=== PATIENT | male | born 1965 | race Caucasian/White ===

== ENCOUNTER 2022-06-22 15:17 | Inpatient (IN) | payer OTHER ==
[~2022-06-22] VITALS: Ht 177.8 cm; Wt 120.7 kg
[~2022-06-22 15:17] MED LIST: SOD FERRIC GLUC 125 MG in IV NS 0.9% 100 ML IV SCH
--- NOTE | 2022-06-22 15:20 | NUR ---
CODE STROKE CALLED
--- NOTE | 2022-06-22 15:20 | NUR ---
BIB RA 102 FROM [facility] AFTER MD NOTED APHASIA AND SLURRED SPEECH LAST KNOWN WELL TIME WAS 1250, BLOOD [id number]. PT ATTACHED TO MONITOR. BLOOD GLUCOSE 115 UPON ARRIVAL. PT HAS NOTED SLURRED SPEECH. DR SPENCE AT BEDSIDE. IV ESTABLIHSED R AC 20G. LABS DRAWNA ND COLLECTED AT BEDSIDE. BREAD SLICER MACHINE AT BEDSIDE
--- NOTE | 2022-06-22 15:20 | NUR ---
PT TAKE TO CT VIA GURNEY WITH ACLS PROTOCOLS IN PLACE
[2022-06-22] MEDS ORDERED: CT SWABBABLE VALVE TRANS SET 1 EA INFUS.SET MC ONE (15:28)
[2022-06-22] MEDS ORDERED: IV NS 0.9% 250 ML IV ONE (15:28)
[2022-06-22] MEDS ORDERED: IOHEXOL-350 100 ML VIAL IV ONE (15:28)
[2022-06-22 15:32] LABS: BASOPHILS # (AUTO) 0.1 K/uL (0.0-0.2); BASOPHILS % (AUTO) 1.1 % (0.0-2.0); EOSINOPHILS % (AUTO) 2.8 % (0.0-6.0); HEMATOCRIT 26 % (39-51); HEMOGLOBIN 7.4 g/dL (13.5-17.5); LYMPHOCYTES # (AUTO) 1.1 K/uL (0.8-4.8); LYMPHOCYTES % (AUTO) 14.3 % (20.0-44.0); MEAN CORPUSCULAR HGB CONC 29 g/dl (31.0-36.0); MEAN CORPUSCULAR VOLUME 66 fL (80-96); MONOCYTES # (AUTO) 0.9 K/uL (0.1-1.30); MONOCYTES % (AUTO) 12.3 % (2.0-12.0); NEUTROPHILS # (AUTO) 5.3 K/uL (1.8-8.9); NEUTROPHILS % (AUTO) 69.5 % (43.0-81.0); PLATELET COUNT (AUTO) 504 K/uL (150-450); RED BLOOD CELL COUNT(AUTO) 3.91 MIL/uL (4.5-6.0); WHITE BLOOD COUNT (AUTO) 7.6 K/uL (4.3-11.0)
--- NOTE | 2022-06-22 15:38 | NUR ---
PT RETURNED FROM CT VIA [facility]
[2022-06-22 15:40] LABS: CALCIUM, SERUM 8.9 mg/dL (8.5-10.1); CARBON DIOXIDE 25 mmol/L (21-32); CHLORIDE 107 mmol/L (98-107); CREATININE 1.9 mg/dL (0.6-1.3); GLUCOSE 115 mg/dL (74-106); POTASSIUM 4.4 mmol/L (3.5-5.1); SODIUM SERUM 140 mmol/L (136-145); UREA NITROGEN, BLOOD 26 mg/dL (7-18)
--- NOTE | 2022-06-22 15:42 | NUR ---
SWALLOW ASSESSMENT DONE, PT PASSED.
[2022-06-22] MEDS ORDERED: IV NS 0.9% 1,000 ML IV ONE (16:00)
--- NOTE | 2022-06-22 16:02 | NUR ---
COVID TEST COLLECTED AND SENT
--- NOTE | 2022-06-22 16:10 | NUR ---
PT STATED THAT HE HAS HAD 4 STROKES IN THE PAST AND HAVING SLURRED SPEECH IS NORMAL. HE STATED THAT AT THE CLINIC HE WAS UNABLE TO GET WORDS OUT WHICH IS ABNORMAL FOR HIM.
--- NOTE | 2022-06-22 16:10 | NUR ---
Brendan alejandrekiet in EDM - 06/22/22 at 1633 by ABILIO PT STATED THAT HE HAS HAD 4 STROKES IN THE PASSED AND HAVING SLURRED SPEECH IS NORMAL. HE STATED THAT AT THE CLINIC HE WAS UNABLE TO GET WORDS OUT WHICH IS ABNORMAL FOR HIM.
[2022-06-22] MEDS ORDERED: PANT40TA49 PO (18:12)
[2022-06-22] MEDS ORDERED: METO50TA16 PO (18:12)
[2022-06-22] MEDS ORDERED: LOSA50TA39 PO (18:12)
[2022-06-22] MEDS ORDERED: NIFE30TA91 PO (18:12)
[2022-06-22] MEDS ORDERED: HYDR100T27 PO (18:12)
[2022-06-22] MEDS ORDERED: CLOP75TA15 PO (18:12)
[2022-06-22] MEDS ORDERED: FURO20TA4 PO (18:12)
[2022-06-22] MEDS ORDERED: ATOR40TA PO (18:12)
[2022-06-22] MEDS ORDERED: ASPI-1169 PO (18:12)
--- NOTE | 2022-06-22 18:29 | NUR ---
REPORT GIVEN TO MARK FOR SONAM
[2022-06-22 19:20] LABS: IRON, SERUM 9 ug/dl (50-175); TOTAL IRON BINDING CAPACITY 423 ug/dl (250-450)
--- NOTE | 2022-06-22 19:51 | NUR ---
KHANH OF KIDNEY DONE AT BEDSIDE
[2022-06-22 20:10] VITALS: BP 128/76
--- NOTE | 2022-06-22 20:10 | NUR ---
RN NOTES; RECEIVED PT FROM ER WITH ALEXIS CONNECTED TO ACLS PROTOCOL,ACCOMPANY BY , AWAKED AOX4 ABLE TO MAKE NEEDS KNOWN,ON 2L O2 VIA NC SHMUEL WELL SAT 98%,NO SOB/DISTRESS NOTED,NO COMPLAINED OF PAIN/DISCOMFORT AT THIS TIME,IV ACCESS RAC 20G INTACT AND PATENT,PT WAS ORIENT THE RM AND VERBALLY ORIENTED,SAFETY MEASURE IN PLACE,CALL LIGHT WITHIN REACH,WILL CONTINUE TO MONITOR.
--- NOTE | 2022-06-22 20:15 | NUR ---
PT TRANSFERRING TO 3W VIA ACLS PROTOCOL. VSS. ALL BELONGINGS WITH PT
--- NOTE | 2022-06-22 20:15 | NUR ---
TRANSFERRED TO ROOM VIA ACLS PROTOCOL
[2022-06-22] MEDS: ATORVASTATIN 40 MG TABLET PO SCH (21:25)
[2022-06-22 23:21] VITALS: BP 129/70
[2022-06-22 23:40] VITALS: BP 135/73
[2022-06-22 23:57] VITALS: BP 133/69
[2022-06-23] VITALS (8 sets, daily range): BP systolic 140–181; BP diastolic 71–103
--- NOTE | 2022-06-23 01:34 | NUR ---
RN NOTES; S/P BLOOD TRANSFUSION 1PRBC,PT SHMUEL WELL,NO SIGN ADVERSE REACTION NOTED,V/S WITHIN NORMAL LIMITS AND RECORDED.CONTINUE TO MONITOR.
[2022-06-23 05:47] LABS: BASOPHILS # (AUTO) 0.1 K/uL (0.0-0.2); BASOPHILS % (AUTO) 1.1 % (0.0-2.0); EOSINOPHILS % (AUTO) 3.8 % (0.0-6.0); HEMATOCRIT 26 % (39-51); HEMOGLOBIN 7.9 g/dL (13.5-17.5); LYMPHOCYTES # (AUTO) 1.5 K/uL (0.8-4.8); LYMPHOCYTES % (AUTO) 23.7 % (20.0-44.0); MEAN CORPUSCULAR HGB CONC 30 g/dl (31.0-36.0); MEAN CORPUSCULAR VOLUME 65 fL (80-96); MONOCYTES # (AUTO) 0.9 K/uL (0.1-1.30); MONOCYTES % (AUTO) 14.6 % (2.0-12.0); NEUTROPHILS # (AUTO) 3.6 K/uL (1.8-8.9); NEUTROPHILS % (AUTO) 56.8 % (43.0-81.0); PLATELET COUNT (AUTO) 411 K/uL (150-450); RED BLOOD CELL COUNT(AUTO) 3.96 MIL/uL (4.5-6.0); WHITE BLOOD COUNT (AUTO) 6.3 K/uL (4.3-11.0)
[2022-06-23 06:08] LABS: CALCIUM, SERUM 8.6 mg/dL (8.5-10.1); CREATININE 1.6 mg/dL (0.6-1.3); POTASSIUM 3.8 mmol/L (3.5-5.1)
--- NOTE | 2022-06-23 06:13 | NUR ---
RN CLOSING NOTES; PATIENT IN BED AWAKED AOX4 ABLE TO MAKE NEEDS KNOWN,ON 2L O2 VIA NC SHMUEL WELL SAT 99%,NO SOB/DISTRESS NOTED,NO COMPLAINED OF PAIN/DISCOMFORT DURING SHIFT,DUE MEDS GIVEN ORDER,ALL NEEDS ATTENDED,IV ACCESS RAC 20G INTACT AND PATENT,SAFETY MEASURE IN PLACE,CALL LIGHT WITHIN REACH,WILL ENDORSED TO NEXT SHIFT.
--- NOTE | 2022-06-23 07:23 | NUR ---
DELIVERY MAN OPENING NOTES RECEIVED PT AWAKE IN BED IN NO ACUTE SIGNS OF DISTRESS. A/O X4. ABLE TO MAKE NEEDS KNOWN, DENIES PAIN OR ANY DISCOMFORTS AT THIS TIME. ON O2 VIA N/C @ 2LPM, TOLERATING WELL, BREATHING EVEN AND UNLABORED.ON TELE-MONITOR WITH READING OF NSR, HR 67 BPM AT THIS TIME, NO C/O CARDIAC DISTRESS VOICED. IV ACCESS RAC #20G INTACT, PATENT AND FLUSHES WELL. NURSING SWALLOW SCREEN DONE, PT SWALLOWING WELL W/O PROBLEM. NIHSS ASSESSMENT DONE, NO DROOPING OF FACE, NO DIFFICULTY SPEAKING, NO DRIFT ON FOUR EXTREMITIES DURING ASSESSMENT. SAFETY MEASURES IN PLACE: BED IN LOWEST LOCKED POSITION, HOB ELEVATED, SIDE RAILS UP X2, CALL LIGHT AND TRAY TABLE WITHIN REACH OF PT. WILL CONTINUE TO MONITOR PT ACCORDINGLY.
[2022-06-23] MEDS: CLOPIDOGREL BISULFATE 75 MG TABLET PO SCH (08:29)
[2022-06-23] MEDS: PANTOPRAZOLE 40 MG TABLET.DR PO SCH ×2 (08:29→17:33)
[2022-06-23] MEDS: ASPIRIN 81 MG TAB.CHEW PO SCH (08:30)
--- NOTE | 2022-06-23 12:49 | NUR ---
RN NOTES RESULTS OF EGD AND COLONOSCOPY FROM [facility] PROVIDED BY PT'S AND PLACED ON PT'S CHART.
[2022-06-23] MEDS: SOD FERRIC GLUC 125 MG in IV NS 0.9% 100 ML IV SCH (14:35)
--- NOTE | 2022-06-23 15:28 | NUR ---
SS Consult: SS consult requested for TIA. The pt. is a 57-year-old female who was admitted to [facility] due to TIA. SW met with pt. bedside. The pt. was alert & oriented x 4 and makes good eye contact. The pt. appears well-groomed. Pt. denies SI/HI and denies hallucinations. The pt. has euthymic mood & affect. Pt. stated that he lives at home [[id number] [facility] [address]] with his , Debbie Andrade [phone] and would like to return there once ready for DC. Pt. states that they 911 after he began having worsening symptoms of aphasia, dysarthria, and right-sided weakness. Per pt., he has had strokes in the past which resulted in aphasia, dysarthria, and right-sided weakness. However, according to the report from the paramedics, his and his PCP noted that it is worse than his normal per EMR. SW conducted post stroke depression scale and pt. scored a 5, and SW notified pt.s nurseConor of psych consult is needed. SW also provided empowerment after stroke educational material and pt. accepted it. Pt. denies drug or alcohol use. Pt. denies any Hx. of mental illness or medication. Pt. stated that her support system includes his and family. DC Plan: Pt. stated she would like to return to home [[id number] [facility] [address]] with his , Debbie Andrade [phone]. SW provided stroke empowerment resources. Pt. accepted them. Pt. scored a 5 on the post stroke depression scale SW notified patients Conor rock for psych consult.
--- NOTE | 2022-06-23 18:15 | NUR ---
RN NOTES COLLECTED URINE SPECIMEN AND CALLED LAB TO IT PICK-UP.
--- NOTE | 2022-06-23 18:20 | NUR ---
RN NOTES SINCERE OTOOLE STATED THAT PT HAS A SCORE OF 5 POST STROKE DEPRESSION SCALE AND NEEDS PSYCH CONSULT. REPORTED AND LEFT MESSAGE TO DR BERMAN.
--- NOTE | 2022-06-23 18:44 | NUR ---
DESIGN QUALITY ENGINEER CLOSING NOTES PT IN BED ASLEEP AT THIS TIME, AROUSES EASILY. HOB ELEVATED. FRIENDS AT BEDSIDE. A/O X4. ABLE TO MAKE NEEDS KNOWN. ON O2 VIA N/C @ 2LPM, TOLERATING WELL, BREATHING EVEN AND UNLABORED. ON TELE-MONITOR WITH CURRENT READING OF NSR, HR 89 BPM, NO C/O CARDIAC DISTRESS VOICED DURING SHIFT. IV ACCESS RAC #20G SL, INTACT, PATENT AND FLUSHES WELL. ALL NEEDS AND CARE ATTENDED WELL. SAFETY MEASURES KEPT IN PLACE: BED IN LOWEST LOCKED POSITION, HOB ELEVATED AT ALL TIMES, SIDE-RAILS UP X2, CALL LIGHT AND TRAY TABLE WITHIN REACH OF PT. WILL ENDORSE SONAM TO TUBE FITTER NURSE.
--- NOTE | 2022-06-23 19:30 | NUR ---
NUMERICAL CONTROL NESTING OPERATOR OPENING NOTES PT IN BED ASLEEP AT THIS TIME, AROUSES EASILY. HOB ELEVATED. FRIENDS AT BEDSIDE. A/O X4. ABLE TO MAKE NEEDS KNOWN. ON O2 VIA N/C @ 2LPM, TOLERATING WELL, BREATHING EVEN AND UNLABORED. ON TELE-MONITOR WITH CURRENT READING OF NSR, HR 89 BPM. IV ACCESS RAC #20G SL, INTACT, PATENT AND FLUSHES WELL. SAFETY MEASURES KEPT IN PLACE: BED IN LOWEST LOCKED POSITION, HOB ELEVATED AT ALL TIMES, SIDE-RAILS UP X2, CALL LIGHT AND TRAY TABLE WITHIN REACH OF PT.
[2022-06-23 19:37] LABS: BILIRUBIN,URINE NEGATIVE (NEGATIVE); LEUKOCYTE ESTERASE ,URINE NEGATIVE (NEGATIVE); NITRITE, URINE NEGATIVE (NEGATIVE); PROTEIN,URINE NEGATIVE (NEGATIVE); UGLUCOSE NEGATIVE (NEGATIVE); UROBILINOGEN,URINE 0.2 EU/dL (0.2)
[2022-06-23 19:42] LABS: COLOR,URINE YELLOW (YELLOW)
[2022-06-23 19:48] LABS: CREATININE, URINE 142.6 MG/DL (30.0-125.0)
[2022-06-23] MEDS: ACETAMINOPHEN 325 MG TABLET PO PRN (21:09)
[2022-06-23] MEDS: ATORVASTATIN 40 MG TABLET PO SCH (21:09)
[2022-06-24] VITALS: BP 164/90
[2022-06-24 04:00] VITALS: BP 150/95
[2022-06-24 06:12] LABS: BASOPHILS # (AUTO) 0.1 K/uL (0.0-0.2); EOSINOPHILS % (AUTO) 4.4 % (0.0-6.0); HEMATOCRIT 25 % (39-51); HEMOGLOBIN 7.8 g/dL (13.5-17.5); LYMPHOCYTES # (AUTO) 1.3 K/uL (0.8-4.8); MEAN CORPUSCULAR HGB CONC 31 g/dl (31.0-36.0); MEAN CORPUSCULAR VOLUME 66 fL (80-96); MONOCYTES % (AUTO) 15.4 % (2.0-12.0); NEUTROPHILS # (AUTO) 3.9 K/uL (1.8-8.9); NEUTROPHILS % (AUTO) 59.2 % (43.0-81.0); PLATELET COUNT (AUTO) 422 K/uL (150-450); RED BLOOD CELL COUNT(AUTO) 3.83 MIL/uL (4.5-6.0); WHITE BLOOD COUNT (AUTO) 6.6 K/uL (4.3-11.0)
[2022-06-24 06:27] LABS: ALBUMIN 3.1 g/dL (3.4-5.0); BILIRUBIN,DIRECT 0.2 mg/dL (0.0-0.2); BILIRUBIN,TOTAL 0.3 mg/dL (0.2-1.0); CALCIUM, SERUM 8.7 mg/dL (8.5-10.1); CREATININE 1.5 mg/dL (0.6-1.3); POTASSIUM 3.8 mmol/L (3.5-5.1); TOTAL PROTEIN, SERUM 6.2 g/dL (6.4-8.2)
[2022-06-24 07:00] VITALS: BP 168/83
--- NOTE | 2022-06-24 07:30 | NUR ---
SLABBER NOTES PT AWAKE, ALERT AND ORIENTED, SITTING IN BED, EATING BREAKFAST, NO COMPLAINT OF PAIN OR ANY DISCOMFORT, RESPIRATIONS NORMAL, CALL LIGHT WITHIN REACH, NEEDS ATTENDED.
[2022-06-24] MEDS: PANTOPRAZOLE 40 MG TABLET.DR PO SCH ×2 (08:08→16:09)
[2022-06-24] MEDS: ASPIRIN 81 MG TAB.CHEW PO SCH (08:08)
[2022-06-24] MEDS: CLOPIDOGREL BISULFATE 75 MG TABLET PO SCH (08:08)
[2022-06-24 12:00] VITALS: BP 151/101
[2022-06-24] MEDS: hydrALAZINE HCL 25 MG TABLET PO SCH ×2 (12:29→16:08)
[2022-06-24] MEDS: SOD FERRIC GLUC 125 MG in IV NS 0.9% 100 ML IV SCH (13:54)
[2022-06-24 16:00] VITALS: BP 146/82
[2022-06-24 16:34] LABS: OCCULT BLOOD STOOL POSITIVE (NEGATIVE)
--- NOTE | 2022-06-24 18:04 | NUR ---
DAY CARE AIDE NOTES PT IN BED, AWAKE, ALERT AND ORIENTED, NO COMPLAINT OF PAIN OR ANY DISCOMFORT, VISITORS AT BEDSIDE, ATE DINNER, DUE MEDS GIVEN ORDERED, ASSISTED TO BATHROOM ORDERED, SEEN BY DR. BERMAN AND DR. DELGADO TODAY, ORDERS GIVEN, NEEDS ATTENDED.
[2022-06-24 20:00] VITALS: BP 161/86
--- NOTE | 2022-06-24 20:04 | NUR ---
DIRECTOR OF STRATEGIC PARTNERSHIPS OPENING NOTE PATIENT AWAKE IN BED WITH FRIENDS AT BEDSIDE, PT ALERT/ORIENTED X 4, PT ABLE TO MAKE NEEDS KNOWN, PT NOTED WITH DYSARTHRIA AT BASELINE. PATIENT STABLE ON 2 LPM OF O2 VIA NASAL CANNULA, NO S/S OF DISTRESS OR SOB NOTED, BREATHING EVEN AND UNLABORED. PATIENT ON EXTERNAL DAIRY CATTLE FARM WORKER READING SINS RHYTHM, HR: 78. IV ACCESS ON LAC #20G INTACT AND SALINE LOCKED. PATIENT C/O OF 5/10 BACK PAIN, NO ORDER FOR PAIN MEDS AT THIS TIME, PT ALSO C/O OF INSOMNIA AND REQUESTING SLEEPING MEDICINE, STATES HE TAKES MELATONIN AT HOME, WILL CONTACT DRUG ABUSE RESISTANCE EDUCATION OFFICER MD FOR ORDERS. SAFETY MEASURES IN PLACE: CALL LIGHT WITHIN REACH, SIDE RAILS UP X 2, BED LOCKED IN LOWEST POSITION, HOB ELEVATED, BED ALARM ON. WILL CONTINUE TO MONITOR PATIENT
--- NOTE | 2022-06-24 20:24 | NUR ---
STAINING MACHINE OPERATOR NOTE CONTACTED SHOWER ENCLOSURE INSTALLER DR. SANDOVAL, NEW ORDER FOR PRN RESTORIL 7.5 MG HS AND PRN MOTRIN 600 MG Q6H, ORDER VERIFIED AND CARRIED OUT
[2022-06-24] MEDS ORDERED: TEMAZEPAM 7.5 MG CAPSULE PO PRN (20:30)
[2022-06-24] MEDS ORDERED: IBUPROFEN 600 MG TABLET PO PRN (20:30)
[2022-06-24] MEDS: ATORVASTATIN 40 MG TABLET PO SCH (21:28)
[2022-06-24] MEDS: ACETAMINOPHEN 325 MG TABLET PO PRN (21:28)
[2022-06-25] VITALS (8 sets, daily range): BP systolic 132–169; BP diastolic 71–100
[2022-06-25 06:15] LABS: BASOPHILS % (AUTO) 0.5 % (0.0-2.0); EOSINOPHILS % (AUTO) 4.7 % (0.0-6.0); HEMATOCRIT 25 % (39-51); HEMOGLOBIN 7.5 g/dL (13.5-17.5); LYMPHOCYTES # (AUTO) 1.5 K/uL (0.8-4.8); LYMPHOCYTES % (AUTO) 20.3 % (20.0-44.0); MEAN CORPUSCULAR HGB CONC 30 g/dl (31.0-36.0); MEAN CORPUSCULAR VOLUME 65 fL (80-96); MONOCYTES # (AUTO) 1.1 K/uL (0.1-1.30); MONOCYTES % (AUTO) 15.3 % (2.0-12.0); NEUTROPHILS # (AUTO) 4.3 K/uL (1.8-8.9); NEUTROPHILS % (AUTO) 59.2 % (43.0-81.0); PLATELET COUNT (AUTO) 395 K/uL (150-450); RED BLOOD CELL COUNT(AUTO) 3.81 MIL/uL (4.5-6.0); WHITE BLOOD COUNT (AUTO) 7.3 K/uL (4.3-11.0)
[2022-06-25 06:30] LABS: CALCIUM, SERUM 8.8 mg/dL (8.5-10.1); CREATININE 1.4 mg/dL (0.6-1.3); POTASSIUM 3.8 mmol/L (3.5-5.1)
--- NOTE | 2022-06-25 06:53 | NUR ---
CONTRACT PREPARER CLOSING NOTE PATIENT SLEEPING IN BED, PT ALERT/ORIENTED X 4, PT ABLE TO MAKE NEEDS KNOWN, PT NOTED WITH MILD DYSARTHRIA AT BASELINE. PATIENT STABLE ON 2 LPM OF O2 VIA NASAL CANNULA, NO S/S OF DISTRESS OR SOB NOTED, BREATHING EVEN AND UNLABORED. PATIENT ON EXTERNAL KEY WORKER READING SINS RHYTHM, HR: 67. IV ACCESS ON RAC #20G INTACT AND SALINE LOCKED. MEDICATIONS GIVEN ORDERED, PT NEEDS MET THROUGHOUT SHIFT. SAFETY MEASURES IN PLACE: CALL LIGHT WITHIN REACH, SIDE RAILS UP X 2, BED LOCKED IN LOWEST POSITION, HOB ELEVATED, BED ALARM ON. WILL ENDORSE TO DAYSHIFT RN FOR CONTINUITY OF CARE
--- NOTE | 2022-06-25 07:00 | NUR ---
MECHATRONICS TECHNICIAN OPENING NOTES: RECEIVED PATIENT IN BED AWAKE, ALERT AND ORIENTED X 4 AND ABLE TO VERBALIZED NEEDS. NOTED WITH DYSARTHRIA (PRESENT ALREADY UPON ADMISSION PER ADMISSION) ON O2 INHALATION @2LPM VIA NASAL CANNULA. NOTED WITH SOB ESPECIALLY UPON EXERTION. ON NUTRITION ASSOCIATE WITH CURRENT READING : SINUS RHYTHM PULSE @67BPM. IV ACCESS ON RAC GAUGE 20 PATENT, INTACT AND SALINE LOCKED. SAFETY MEASURES MAINTAINED: BED LOCKED AND IN LOWEST POSITION, SIDE RAILS UP X 2. CALL LIGHT IN EASY REACH FOR HELP AND ASSISTANCE. WILL MONITOR PATEIENT ACCORDINGLY.
[2022-06-25] MEDS: CLOPIDOGREL BISULFATE 75 MG TABLET PO SCH (08:18)
[2022-06-25] MEDS: PANTOPRAZOLE 40 MG TABLET.DR PO SCH ×2 (08:18→16:19)
[2022-06-25] MEDS: ASPIRIN 81 MG TAB.CHEW PO SCH (08:18)
[2022-06-25] MEDS: hydrALAZINE HCL 25 MG TABLET PO SCH ×3 (08:19→16:20)
[2022-06-25] MEDS: VENLAFAXINE XR 37.5 MG CAP.SR.24H PO SCH (11:20)
[2022-06-25 12:06] LABS: IMMUNOGLOBULIN A, SERUM 273 mg/dL (90-386); IMMUNOGLOBULIN G, SERUM 872 mg/dL (603-1613); IMMUNOGLOBULIN M, SERUM 64 mg/dL (20-172)
[2022-06-25] MEDS: SOD FERRIC GLUC 125 MG in IV NS 0.9% 100 ML IV SCH (14:22)
--- NOTE | 2022-06-25 18:46 | NUR ---
TRANSFORMER MECHANIC CLOSING NOTES: PT IN BED AWAKE. ALERT AND ORIENTED X 4 AT BED SIDE, NO SOB OR CARDIAC DISTRESS NOTED. ON O2 INHALATION @2LPM VIA NC. ON PRINCIPAL GIFTS OFFICER WITH CURRENT READING OF:SINUS RHYTHM @ 83BPM. IV ACCESS ON RAC GAUGE 20, PATENT INTACT AND SALINE LOCKED. SAFETY MEASURES MAINTAINED: BED LOCKED AND IN LOWEST POSITION, SIDE RAILS UP X 2. CALL LIGHT IN EASY REACH FOR HELP. WILL MONITOR PT ACCORDINGLY. ENDORSED TO OCCUPATIONAL THERAPY DIRECTOR RN FOR CONTINUITY OF CARE.
--- NOTE | 2022-06-25 19:35 | NUR ---
POLITICAL CONSULTANT OPENING NOTES RECEIVED PT IN BED AWAKE. ALERT AND ORIENTED. A/O X 4. AT BED SIDE, NO SOB OR CARDIAC DISTRESS NOTED. ON O2 INHALATION @2LPM VIA NC, BREATHING EVEN AND UNLABORED, NO SOB OR DISTRESS NOTED AT THIS TIME. ON FOLDER SEAMER AUTOMATIC WITH CURRENT READING OFSINUS RHYTHM @ 82. IV ACCESS ON RAC #20G, PATENT INTACT AND SALINE LOCKED. SAFETY MEASURES MAINTAINED WITH BED IN LOCK AND IN LOWEST POSITION. SIDE RAILS UP X 2. CALL LIGHT AND TRAY WITHIN EASY REACH. WILL CONTINUE WITH THE PLAN OF CARE.
[2022-06-25] MEDS: ATORVASTATIN 40 MG TABLET PO SCH (22:22)
[2022-06-26] VITALS: BP 147/79
[2022-06-26 04:00] VITALS: BP 156/68
[2022-06-26 06:17] LABS: BASOPHILS # (AUTO) 0.1 K/uL (0.0-0.2); BASOPHILS % (AUTO) 0.7 % (0.0-2.0); EOSINOPHILS % (AUTO) 4.6 % (0.0-6.0); HEMATOCRIT 26 % (39-51); HEMOGLOBIN 7.8 g/dL (13.5-17.5); LYMPHOCYTES # (AUTO) 1.1 K/uL (0.8-4.8); LYMPHOCYTES % (AUTO) 14.5 % (20.0-44.0); MEAN CORPUSCULAR HGB CONC 30 g/dl (31.0-36.0); MEAN CORPUSCULAR VOLUME 66 fL (80-96); MONOCYTES # (AUTO) 1.3 K/uL (0.1-1.30); MONOCYTES % (AUTO) 16.5 % (2.0-12.0); NEUTROPHILS % (AUTO) 63.7 % (43.0-81.0); PLATELET COUNT (AUTO) 378 K/uL (150-450); RED BLOOD CELL COUNT(AUTO) 3.92 MIL/uL (4.5-6.0); WHITE BLOOD COUNT (AUTO) 7.9 K/uL (4.3-11.0)
[2022-06-26 06:43] LABS: CALCIUM, SERUM 8.5 mg/dL (8.5-10.1); CREATININE 1.4 mg/dL (0.6-1.3); POTASSIUM 4.1 mmol/L (3.5-5.1)
--- NOTE | 2022-06-26 07:12 | NUR ---
DIRECTOR OF HOME ECONOMICS OPENING NOTES: RECEIVED PATIENT IN BED ASLEEP, EASILY AROUSED WITH STIMULI, ALERT AND ORIENTED X 4 AND ABLE TO VERBALIZED NEEDS. NOTED WITH DYSARTHRIA (PRESENT ALREADY UPON ADMISSION PER ADMISSION) ON O2 INHALATION @2LPM VIA NASAL CANNULA. NOTED WITH SOB ESPECIALLY UPON EXERTION. ON RD SCIENTIST WITH CURRENT READING : SINUS RHYTHM PULSE @64BPM. IV ACCESS ON RAC GAUGE 20 PATENT, INTACT AND SALINE LOCKED. SAFETY MEASURES MAINTAINED: BED LOCKED AND IN LOWEST POSITION, SIDE RAILS UP X 2. CALL LIGHT IN EASY REACH FOR HELP AND ASSISTANCE. WILL MONITOR PATEIENT ACCORDINGLY.
[2022-06-26 08:00] VITALS: BP 156/96
--- NOTE | 2022-06-26 08:06 | NUR ---
SPA RECEPTIONIST CLOSING NOTES PT IN BED AWAKE. ALERT AND ORIENTED. A/O X 4. NO SOB OR CARDIAC DISTRESS NOTED. ON O2 INHALATION @2LPM VIA NC, BREATHING EVEN AND UNLABORED, NO SOB OR DISTRESS NOTED AT THIS TIME. ON FIELD IDENTIFICATION SPECIALIST WITH CURRENT READING OF SINUS RHYTHM @ 82. IV ACCESS ON RAC #20G, PATENT INTACT AND SALINE LOCKED. SAFETY MEASURES MAINTAINED WITH BED IN LOCK AND IN LOWEST POSITION. SIDE RAILS UP X 2. CALL LIGHT AND TRAY WITHIN EASY REACH. WILL ENDORSE TO THE NEXT SHIFT.
[2022-06-26] MEDS: hydrALAZINE HCL 25 MG TABLET PO SCH ×3 (08:42→16:44)
[2022-06-26] MEDS: ASPIRIN 81 MG TAB.CHEW PO SCH (08:42)
[2022-06-26] MEDS: VENLAFAXINE XR 37.5 MG CAP.SR.24H PO SCH ×3 (08:42→08:53)
[2022-06-26] MEDS: CLOPIDOGREL BISULFATE 75 MG TABLET PO SCH (08:42)
[2022-06-26] MEDS: PANTOPRAZOLE 40 MG TABLET.DR PO SCH ×2 (08:43→16:43)
--- NOTE | 2022-06-26 08:47 | NUR ---
RN NOTES: PT INITIALLY WANTED TO TAKE EFFEXOR, OPENED AND PT CHANGED MIND AND REFUSED. REMOVED MARKETING INFORMATION COORDINATOR AND NITISH TO AERIAL APPLICATOR PILOT SAMANTHA.
[2022-06-26 11:02] LABS: EOSINOPHILS % (MANUAL) 4 % (0-4); LYMPHOCYTES % (MANUAL) 17 % (16-48); MONOCYTES % (MANUAL) 14 % (0-11.0); NEUTROPHILS % (MANUAL) 65 (42-76)
[2022-06-26 12:00] VITALS: BP 160/85
[2022-06-26] MEDS: SOD FERRIC GLUC 125 MG in IV NS 0.9% 100 ML IV SCH (14:05)
[2022-06-26] MEDS ORDERED: FERR325T23 PO (14:46)
[2022-06-26 16:44] VITALS: BP 151/81
--- NOTE | 2022-06-26 16:44 | NUR ---
MS DISCHARGE NOTES: PATIENT DC HOME ACCOMPANIED BY FRIEND. PT ALERT AND ORIENTED X 4 AND ABLE TO MAKE NEEDS KNOWN, NO COMPLAIN OF ANY PAIN AT THIS TIME. DISCHARGE MEDS GIVEN TO PT AND VERBALIZED UNDERSTANDING. MEDS DISCHARGE INSTRUCTIONS GIVEN AND PACKET. ALL BELONGINGS TAKEN WITH THE PT. HELP DESK TECHNICIAN PAOLA BERMAN DROPPED BY AND REPEATED THE DC ORDERS. HOME HEALTH ARRANGED PER CM MARLO AND INFORMED PT.INSTRUCTED TO CHECK BP EVERYDAY AND IT SHOULD BE IN 150S. REMOVEDD IV ACCESS AND PT'S IDENTIFICATION BAND. PT WAS WHEELED BY YESY Wong PT LEFT THE UNIT STABLE.
[2022-06-26] MEDS ORDERED: ONDANSETRON HCL/PF 4 MG/2 ML VIAL ONE (20:55)
[2022-06-27 11:07] LABS: *SPE A/G RATIO 1.1 (0.7-1.7); *SPE ALPHA-1-GLOBULIN 0.4 g/dL (0.0-0.4); *SPE ALPHA-2-GLOBULIN 0.7 g/dL (0.4-1.0); *SPE M-SPIKE Not Observed g/dL (Not Observed)
[2022-07-01] MEDS ORDERED: LEVO500T90 PO (10:21)
== END 2022-06-26 17:15 | disposition home health service (06) | DRG 47 ==
LOC: ER 15:18 → TELE 18:50 → MED 06-26 10:57
PROVIDERS: ADMIT Nurse Practitioner Acute Care; ATTEND Nurse Practitioner Acute Care
PROC: 30233N1 Transfusion of Nonautologous Red Blood Cells into Peripheral Vein, Percutaneous Approach (ICD-10-PCS; principal; 2022-06-22)
DX: G45.9 Transient cerebral ischemic attack, unspecified (principal); N17.0 Acute kidney failure with tubular necrosis; I69.351 Hemiplegia and hemiparesis following cerebral infarction affecting right dominant side; I25.10 Atherosclerotic heart disease of native coronary artery without angina pectoris
CPT/HCPCS: 36415; 70450-TC; 70496-TC; 70498-TC; 70547-TC; 70551-TC; 71045-TC; 71250-TC; 76770-TC; 80048-TC; 80061-TC; 80076-TC; 82272-TC; 82570-TC; 82607-TC; 82728-TC; 82784; 82962-TC; 83540-TC; 84155; 84165; 84300-TC; 84443-TC; 84484-TC; 85025-TC; 85730-TC; 86334; 86850-TC; 87081-TC; 92526; 92611-TC; 93307-TC; 93880-TC; 97112-TC; 97116-TC; 97530-TC; A4223; C9803; G0378; J2405; J2916; J7030; J7040; J7050; P9016; Q9967

== ENCOUNTER 2022-06-26 19:54 | Inpatient (IN) | payer OTHER ==
[~2022-06-26] VITALS: Ht 167.6 cm; Wt 113.4 kg
[~2022-06-26 19:54] MED LIST changes: +ASPI-1169 PO; +ATOR40TA PO; +CLOP75TA15 PO; +FERR325T23 PO; +FURO20TA4 PO; +HYDR100T27 PO; +LOSA50TA39 PO; +METO50TA16 PO; +NIFE30TA91 PO; +PANT40TA49 PO; -SOD FERRIC GLUC 125 MG in IV NS 0.9% 100 ML IV SCH
--- NOTE | 2022-06-26 20:00 | NUR ---
MARYJO 86 FROM HOME FOR FEVER AND CHILLS. PT WAS D/C'D HOME FROM [facility] AT 1830. PLACED IN BED, AAOX3, TACHYPNEIC RR- 28 SATURATING AT 95%RA, WARM TO TOUCH.
[2022-06-26] MEDS ORDERED: ACETAMINOPHEN ES 500 MG TABLET PO ONE ×2 (20:30→21:00)
[2022-06-26] MEDS ORDERED: IV NS 0.9% 1,000 ML BAG IV ONE (20:30)
--- NOTE | 2022-06-26 20:35 | NUR ---
BLOOD DRAWN, SWAB FOR COVID19 SENT TO LAB.
[2022-06-26] MEDS ORDERED: ACETAMINOPHEN ES 500 MG TABLET ONE (20:38)
[2022-06-26 20:46] LABS: BASOPHILS # (AUTO) 0.1 K/uL (0.0-0.2); BASOPHILS % (AUTO) 0.9 % (0.0-2.0); EOSINOPHILS % (AUTO) 0.6 % (0.0-6.0); HEMATOCRIT 29 % (39-51); HEMOGLOBIN 8.7 g/dL (13.5-17.5); LYMPHOCYTES # (AUTO) 0.5 K/uL (0.8-4.8); LYMPHOCYTES % (AUTO) 3.1 % (20.0-44.0); MEAN CORPUSCULAR HGB CONC 30 g/dl (31.0-36.0); MEAN CORPUSCULAR VOLUME 66 fL (80-96); MONOCYTES # (AUTO) 1.4 K/uL (0.1-1.30); MONOCYTES % (AUTO) 9.4 % (2.0-12.0); NEUTROPHILS # (AUTO) 12.9 K/uL (1.8-8.9); PLATELET COUNT (AUTO) 378 K/uL (150-450); RED BLOOD CELL COUNT(AUTO) 4.41 MIL/uL (4.5-6.0)
[2022-06-26] MEDS ORDERED: ONDANSETRON HCL/PF - ER 4 MG/2 ML VIAL IV ONE (21:00)
[2022-06-26 21:09] LABS: ALANINE AMINOTRANSFERASE 21 U/L (12-78); ALBUMIN 3.8 g/dL (3.4-5.0); ALKALINE PHOSPHATASE 67 U/L (46-116); ASPARTATE AMINOTRANSFERASE 19 U/L (15-37); BILIRUBIN,DIRECT 0.2 mg/dL (0.0-0.2); BILIRUBIN,TOTAL 0.5 mg/dL (0.2-1.0); CALCIUM, SERUM 9.1 mg/dL (8.5-10.1); CARBON DIOXIDE 24 mmol/L (21-32); CHLORIDE 103 mmol/L (98-107); CREATININE 1.6 mg/dL (0.6-1.3); GLUCOSE 96 mg/dL (74-106); POTASSIUM 3.2 mmol/L (3.5-5.1); SODIUM SERUM 140 mmol/L (136-145); TOTAL PROTEIN, SERUM 7.1 g/dL (6.4-8.2); UREA NITROGEN, BLOOD 17 mg/dL (7-18)
--- NOTE | 2022-06-26 21:13 | NUR ---
CRITICAL LACTIC ACID 2.1
[2022-06-26] MEDS ORDERED: ACETAMINOPHEN 325 MG TABLET PO PRN (22:00)
[2022-06-26] MEDS ORDERED: MAG HYDROX/AL HYDROX/SIMETH 30 ML UDC PO PRN (22:00)
[2022-06-26] MEDS ORDERED: Z GUARD REMEDY 4 OZ OINT TP PRN (22:00)
[2022-06-26] MEDS ORDERED: MAGNESIUM HYDROXIDE 30 ML UDC PO PRN (22:00)
[2022-06-26 22:17] LABS: BAND % (MANUAL) 2 % (0.0-5.0); LYMPHOCYTES % (MANUAL) 7 % (16-48); MONOCYTES % (MANUAL) 4 % (0-11.0); NEUTROPHILS % (MANUAL) 87 (42-76)
[2022-06-26] MEDS ORDERED: LEVOFLOXACIN 750 MG /D5W 150ML PIGGYBACK IV ONE (22:30)
--- NOTE | 2022-06-26 23:09 | NUR ---
REPORT GIVEN TO NORM RN ROOM 103 FOR SONAM
[2022-06-26] MEDS ORDERED: LEVOFLOXACIN 750 MG /D5W 150ML 150 ML IV ONE ×2 (23:13→23:33)
--- NOTE | 2022-06-26 23:30 | NUR ---
patient transfered to room 103 per acls protocol.
--- NOTE | 2022-06-26 23:45 | NUR ---
CHILD WELFARE SPECIALIST ADMITTING NOTE PATIENT WAS TRANSFERRED FROM ER TO [facility] AT 2325H; PATIENT IS A/O X 4, WITH PARTNER AT BEDSIDE, ABLE TO MAKE NEEDS KNOWN; ON 2LPM OXYGEN VIA NASAL CANNULA, TOLERATING WELL; WITH IV ACCESS ON LEFT HAND G22 CURRENTLY INFUSING LEVAQUIN; HOOKED TO OFFSET PLATE PREPARATION SUPERVISOR WITH ECG READING OF SINUS RHYTHM AT 90S BPM; ORIENTED TO STAFF AND ROOM; VITAL SIGNS TAKEN AND RECORDED; ENCOURAGED VERBALIZATION OF NEEDS; SAFETY MEASURES IMPLEMENTED, BED IN LOW AND LOCKED POSITION, SIDE RAILS UP X 2, CALL LIGHT WITHIN REACH; WILL CONTINUE TO MONITOR THROUGHOUT SHIFT
[2022-06-27] VITALS: BP 124/68
--- NOTE | 2022-06-27 01:55 | NUR ---
HOGSHEAD COOPER NOTE PATIENT COMPLAINED OF FEELING NAUSEOUS, OBSERVED PATIENT; INFORMED CHARGED NURSE. ADMINISTERED ZOFRAN PRN ORDERED; WILL CONTINUE TO MONITOR
[2022-06-27] MEDS: ONDANSETRON HCL/PF 4 MG/2 ML VIAL IVP PRN ×2 (02:02→10:53)
[2022-06-27] MEDS: IV NS 0.9% 1,000 ML IV PRN ×2 (02:59→18:37)
[2022-06-27 04:00] VITALS: BP 114/56
--- NOTE | 2022-06-27 06:49 | NUR ---
ROCK CLIMBING TEAM MEMBER CLOSING NOTE PATIENT IS A/O X 4, ABLE TO MAKE NEEDS KNOWN; ON 2LPM OXYGEN VIA NASAL CANNULA, TOLERATING WELL SATURATING AT 95-100%; WITH IV ACCESS ON LEFT HAND G22, PATENT AND INTACT; HOOKED TO DIRECTOR SALES AND MARKETING WITH ECG READING OF SINUS RHYTHM AT 90-100S BPM; ADMINISTERED MEDICATIONS PRESCRIBED; PATIENT'S NEEDS ATTENDED; MONITORED PATIENT ACCORDINGLY; SAFETY MEASURES IMPLEMENTED, BED IN LOW AND LOCKED POSITION, SIDE RAILS UP X 2, CALL LIGHT WITHIN REACH; WILL ENDORSE TO AM NURSE FOR SONAM.
[2022-06-27 06:58] LABS: BASOPHILS # (AUTO) 0.1 K/uL (0.0-0.2); BASOPHILS % (AUTO) 0.3 % (0.0-2.0); HEMATOCRIT 25 % (39-51); HEMOGLOBIN 7.7 g/dL (13.5-17.5); LYMPHOCYTES # (AUTO) 0.5 K/uL (0.8-4.8); LYMPHOCYTES % (AUTO) 2.3 % (20.0-44.0); MEAN CORPUSCULAR HGB CONC 30 g/dl (31.0-36.0); MEAN CORPUSCULAR VOLUME 66 fL (80-96); MONOCYTES # (AUTO) 1.6 K/uL (0.1-1.30); MONOCYTES % (AUTO) 7.2 % (2.0-12.0); NEUTROPHILS # (AUTO) 19.6 K/uL (1.8-8.9); NEUTROPHILS % (AUTO) 90.2 % (43.0-81.0); PLATELET COUNT (AUTO) 313 K/uL (150-450); RED BLOOD CELL COUNT(AUTO) 3.81 MIL/uL (4.5-6.0); WHITE BLOOD COUNT (AUTO) 21.8 K/uL (4.3-11.0)
[2022-06-27 07:05] LABS: CALCIUM, SERUM 8.6 mg/dL (8.5-10.1); CREATININE 1.6 mg/dL (0.6-1.3); MAGNESIUM 1.9 mg/dL (1.8-2.4); PHOSPHORUS 2.8 mg/dL (2.5-4.9); POTASSIUM 4.3 mmol/L (3.5-5.1)
--- NOTE | 2022-06-27 07:19 | NUR ---
AUTOMOTIVE PARTS COUNTER ASSOCIATE ADMITTING NOTE PATIENT IN BED. A/O X 4. ON 2LPM OXYGEN VIA NASAL CANNULA, TOLERATING WELL WITH NO SIGNS OF SOB OR DISTRESS. IV ACCESS ON LEFT HAND G22 PATENT AND FLUSHING WELL. SAFETY MEASURES IMPLEMENTED WITH BED IN LOWEST AND LOCKED POSITION, SIDE RAILS UP X 2, CALL LIGHT WITHIN REACH. WILL CONTINUE TO MONITOR.
[2022-06-27 08:00] VITALS: BP 120/56
[2022-06-27] MEDS: PANTOPRAZOLE 40 MG TABLET.DR PO SCH ×2 (08:52→17:44)
[2022-06-27] MEDS: FERROUS SULFATE (325 MG) 325 MG/TAB TABLET PO SCH ×2 (08:52→17:45)
[2022-06-27] MEDS: CLOPIDOGREL BISULFATE 75 MG TABLET PO SCH (08:52)
[2022-06-27] MEDS: hydrALAZINE HCL 25 MG TABLET PO SCH ×3 (08:53→17:44)
[2022-06-27] MEDS: ASPIRIN 81 MG TAB.CHEW PO SCH (08:53)
[2022-06-27 12:00] VITALS: BP 121/69
[2022-06-27 12:29] LABS: BAND % (MANUAL) 12 % (0.0-5.0); LYMPHOCYTES % (MANUAL) 7 % (16-48); MONOCYTES % (MANUAL) 4 % (0-11.0); NEUTROPHILS % (MANUAL) 77 (42-76)
[2022-06-27 16:00] VITALS: BP 107/75
[2022-06-27] MEDS: ATORVASTATIN 40 MG TABLET PO SCH (17:44)
[2022-06-27 18:07] LABS: D-DIMER 1.14 mg/L(FEU (0.17-0.50)
--- NOTE | 2022-06-27 18:47 | NUR ---
RN NOTE PATIENT REPORTED NOSE BLEED, PRESSURE APPLIED TO BRIDGE OF NOSE AND COLD PACK APPLIED TO FOREHEAD. PER PATIENT HAS A HISTORY OF NOSEBLEEDS.
--- NOTE | 2022-06-27 19:06 | NUR ---
OIL TREATER CLOSING NOTE PATIENT IN BED WITH FAMILY AT [facility]. A/O X 4. ABLE TO MAKE NEEDS KNOWN. NC TEMPORARILY DISCONTINUED DUE TO CONTINUOUS NOSE BLEED. ON RA WITH NO SIGNS OF SOB OR DISTRESS. PATIENT DOWNGRADED TO MED SURG. IV ACCESS ON LEFT HAND G22, PATENT AND INTACT. ALL SAFETY MEASURES IMPLEMENTED, BED IN LOW AND LOCKED POSITION, SIDE RAILS UP X 2, CALL LIGHT WITHIN REACH. WILL ENDORSE TO ONCOMING SHIFT RN FOR SONAM.
--- NOTE | 2022-06-27 19:52 | NUR ---
OVERHEAD CLEANER OPENING NOTE RECEIVED PATIENT IN BED WITH FAMILY AT BEDSIDE. A/O X 4. ABLE TO MAKE NEEDS KNOWN. NC TEMPORARILY DISCONTINUED DUE TO CONTINUOUS NOSE BLEED. ON RA TOLERATING WELL, WITH NO SIGNS OF SOB OR DISTRESS. IV ACCESS ON LEFT HAND G22, PATENT AND INTACT INFUSING NS @75ML/HR. SAFETY MEASURES IMPLEMENTED; BED IN LOWEST POSITION, BED LOCKED, SIDE RAILS UP X 2, CALL LIGHT AND BEDSIDE TABLE WITHIN PATIENTS REACH.
[2022-06-27 19:56] LABS: BILIRUBIN,URINE NEGATIVE (NEGATIVE); COLOR,URINE YELLOW (YELLOW); LEUKOCYTE ESTERASE ,URINE NEGATIVE (NEGATIVE); NITRITE, URINE NEGATIVE (NEGATIVE); PH,URINE 5.5 (5.0-8.0); PROTEIN,URINE NEGATIVE (NEGATIVE); UGLUCOSE NEGATIVE (NEGATIVE); UROBILINOGEN,URINE 0.2 EU/dL (0.2)
[2022-06-27 20:00] VITALS: BP 135/75
[2022-06-27 20:16] LABS: CREATININE, URINE 80.2 MG/DL (30.0-125.0)
[2022-06-27] MEDS: LEVOFLOXACIN 500 MG /D5W 100ML 500 MG in PREMIX 1 EA IV SCH (22:59)
[2022-06-28] VITALS: BP 128/83
--- NOTE | 2022-06-28 01:40 | NUR ---
RN NOTES LAB CALLED. BLOOD CULTURE RESULT IS GRAM POSITIVE AEROBIC. DIRECTOR OF LAND ACQUISITION DOCTOR YON MADE AWARE.
[2022-06-28] MEDS ORDERED: VANCOMYCIN 2 GM in IV D5W 500 ML IV ONE (03:00)
[2022-06-28] MEDS ORDERED: VANCOMYCIN 1 GM VIAL ONE ×2 (03:03→03:10)
--- NOTE | 2022-06-28 03:39 | NUR ---
RN NOTES NEW ORDER LOADING DOSE OF VANCOMYCIN 2G RECEIVED FROM DEXTER MARVIN. CARRIED OUT. CALLED TO VERIFY THE DOSE. PHARMACIST CONFORMED.
[2022-06-28 04:00] VITALS: BP 109/62
--- NOTE | 2022-06-28 06:39 | NUR ---
MS RN CLOSING NOTES PATIENT IN BED AWAKE BUT EASILY AWAKEN. A/O X 4. ABLE TO MAKE NEEDS KNOWN. NC TEMPORARILY DISCONTINUED DUE TO CONTINUOUS NOSE BLEED. ON RA TOLERATING WELL, WITH NO SIGNS OF SOB OR DISTRESS. IV ACCESS ON LEFT HAND G22, PATENT AND INTACT INFUSING NS @75ML/HR. ALL DUE MEDICATIONS ARE GIVEN. MADE SURE PATIENT IS COMFORTABLE. SAFETY MEASURES IMPLEMENTED; BED IN LOWEST POSITION, BED LOCKED, SIDE RAILS UP X 2, CALL LIGHT AND BEDSIDE TABLE WITHIN PATIENTS REACH. WILL ENDORSE TO THE NEXT SHIFT FOR CONTINUITY OF CARE.
[2022-06-28 07:15] LABS: BASOPHILS # (AUTO) 0.1 K/uL (0.0-0.2); BASOPHILS % (AUTO) 0.4 % (0.0-2.0); EOSINOPHILS % (AUTO) 1.5 % (0.0-6.0); HEMATOCRIT 27 % (39-51); HEMOGLOBIN 7.9 g/dL (13.5-17.5); LYMPHOCYTES % (AUTO) 8.6 % (20.0-44.0); MEAN CORPUSCULAR HGB CONC 29 g/dl (31.0-36.0); MEAN CORPUSCULAR VOLUME 68 fL (80-96); MONOCYTES # (AUTO) 2.1 K/uL (0.1-1.30); MONOCYTES % (AUTO) 17.2 % (2.0-12.0); NEUTROPHILS # (AUTO) 8.7 K/uL (1.8-8.9); NEUTROPHILS % (AUTO) 72.3 % (43.0-81.0); PLATELET COUNT (AUTO) 279 K/uL (150-450); RED BLOOD CELL COUNT(AUTO) 3.99 MIL/uL (4.5-6.0)
[2022-06-28] MEDS ORDERED: TEMAZEPAM 7.5 MG CAPSULE PO PRN (07:30)
[2022-06-28] MEDS: PANTOPRAZOLE 40 MG TABLET.DR PO SCH ×2 (07:43→16:13)
[2022-06-28 08:00] VITALS: BP 134/68
[2022-06-28 08:18] LABS: CALCIUM, SERUM 8.6 mg/dL (8.5-10.1); POTASSIUM 3.8 mmol/L (3.5-5.1)
[2022-06-28] MEDS: FERROUS SULFATE (325 MG) 325 MG/TAB TABLET PO SCH ×2 (08:18→16:15)
[2022-06-28 08:19] LABS: CREATININE 1.5 mg/dL (0.6-1.3); MAGNESIUM 2.1 mg/dL (1.8-2.4); PHOSPHORUS 2.5 mg/dL (2.5-4.9)
[2022-06-28] MEDS: CLOPIDOGREL BISULFATE 75 MG TABLET PO SCH (08:19)
[2022-06-28] MEDS: ASPIRIN 81 MG TAB.CHEW PO SCH (08:19)
[2022-06-28] MEDS: hydrALAZINE HCL 25 MG TABLET PO SCH ×3 (08:19→16:14)
[2022-06-28 10:42] LABS: FERRITIN 122 ng/mL (8-388); IRON, SERUM 19 ug/dl (50-175); TOTAL IRON BINDING CAPACITY 330 ug/dl (250-450)
--- NOTE | 2022-06-28 12:32 | NUR ---
INFORMED DR SANDOVAL REGARDING PT'S WANTS TO TAKE HER TO [facility]
--- NOTE | 2022-06-28 13:34 | NUR ---
per dr. heart pt. need to go [facility] if wanted to go to the [facility] explained to and pt. will discussed it for now.
[2022-06-28 14:35] LABS: LYMPHOCYTES % (MANUAL) 10 % (16-48); MONOCYTES % (MANUAL) 13 % (0-11.0); NEUTROPHILS % (MANUAL) 76 (42-76)
[2022-06-28 16:00] VITALS: BP 139/51
[2022-06-28] MEDS: ATORVASTATIN 40 MG TABLET PO SCH (16:58)
--- NOTE | 2022-06-28 19:13 | NUR ---
CLOSING NOTE [facility] A/O X 4. ABLE TO MAKE NEEDS KNOWN. ON RA WITH NO SIGNS OF SOB OR DISTRESS. IV ACCESS ON LEFT HAND G22, PATENT AND INTACT. ALL SAFETY MEASURES IMPLEMENTED, BED IN LOW AND LOCKED POSITION, SIDE RAILS UP X 2, CALL LIGHT WITHIN REACH. WILL ENDORSE TO ONCOMING SHIFT RN FOR SONAM.
--- NOTE | 2022-06-28 19:50 | NUR ---
MS RN OPENING NOTES: RECEIVED PATIENT AWAKE IN BED, ACCOMPANIED BY FAMILY, BED IN LOW POSITION, CALL LIGHTS WITHIN REACH, NO COMPLAIN OF PAIN AND DISCOMFORT AT THIS TIME, ON 02 INHALATION AT 2LPM SATURATING WELL, PATIENT IS A/O X4 ABLE TO MAKE NEEDS KNOWN AMBULATORY WITH ASSIST, IV LINE AT LEFT HAND #22 WITH ONGOING 0.9NSS@75ML/HR INFUSING WELL, PATIENT KEPT CLEAN AND DRY ALL NEEDS MET WILL CONTINUE TO MONITOR.
[2022-06-28 20:00] VITALS: BP 145/93
[2022-06-28] MEDS: LEVOFLOXACIN 500 MG /D5W 100ML 500 MG in PREMIX 1 EA IV SCH (23:01)
[2022-06-29] VITALS: BP 145/93
[2022-06-29] MEDS: IV NS 0.9% 1,000 ML IV PRN ×2 (02:20→22:00)
[2022-06-29] MEDS ORDERED: VANCOMYCIN 1.5 GM in IV D5W 500ml IV SCH (03:00)
--- NOTE | 2022-06-29 06:14 | NUR ---
MS RN CLOSING NOTES: PATIENT SLEEP IN BED COMFORTABLY, AROUSABLE TO VERBAL STIMULI, RENÉ IN LOW POSITION, CALL LIGHTS WITHIN REACH, NO COMPLAIN OF PAIN AND DISCOMFORT AT THIS TIME ON ROOM AIR SATURATING WELL, PATIENT IS A/O4 ABLE TO MAKE NEEDS KNOWN, AMBULATORY WITH ASSISTANCE, PATIENT KEPT CLEAN AND DRY ALL NEEDS MET ENDORSE TO INCOMING SHIFT.
[2022-06-29 06:30] LABS: BASOPHILS % (AUTO) 0.5 % (0.0-2.0); EOSINOPHILS % (AUTO) 3.9 % (0.0-6.0); HEMATOCRIT 27 % (39-51); HEMOGLOBIN 8.1 g/dL (13.5-17.5); LYMPHOCYTES # (AUTO) 1.3 K/uL (0.8-4.8); MEAN CORPUSCULAR HGB CONC 30 g/dl (31.0-36.0); MEAN CORPUSCULAR VOLUME 68 fL (80-96); MONOCYTES # (AUTO) 1.5 K/uL (0.1-1.30); NEUTROPHILS # (AUTO) 4.6 K/uL (1.8-8.9); NEUTROPHILS % (AUTO) 59.6 % (43.0-81.0); PLATELET COUNT (AUTO) 274 K/uL (150-450); RED BLOOD CELL COUNT(AUTO) 3.99 MIL/uL (4.5-6.0); WHITE BLOOD COUNT (AUTO) 7.7 K/uL (4.3-11.0)
[2022-06-29 06:43] LABS: CALCIUM, SERUM 8.4 mg/dL (8.5-10.1); CREATININE 1.4 mg/dL (0.6-1.3); POTASSIUM 3.7 mmol/L (3.5-5.1)
--- NOTE | 2022-06-29 07:41 | NUR ---
MED/SURG ([facility]) OPENING NOTE (DAYSHIFT) RECEIVED PATIENT IN BED, SLEEPING, EASILY AROUSED, A/O X 4. ABLE TO MAKE NEEDS KNOWN. ON RA TOLERATING WELL, WITH NO SIGNS OF SOB OR DISTRESS. IV ACCESS ON LEFT HAND GAUGE # 22, PATENT AND INTACT INFUSING NS @75ML/HR. SAFETY MEASURES IMPLEMENTED; BED IN LOWEST POSITION, BED LOCKED, SIDE RAILS UP X 2, CALL LIGHT AND BEDSIDE TABLE WITHIN PATIENTS REACH.
[2022-06-29 08:00] VITALS: BP 141/58
[2022-06-29] MEDS: PANTOPRAZOLE 40 MG TABLET.DR PO SCH ×2 (08:25→16:53)
[2022-06-29] MEDS: hydrALAZINE HCL 25 MG TABLET PO SCH ×3 (08:25→16:54)
[2022-06-29] MEDS: ASPIRIN 81 MG TAB.CHEW PO SCH (08:26)
[2022-06-29] MEDS: CLOPIDOGREL BISULFATE 75 MG TABLET PO SCH (08:26)
[2022-06-29] MEDS: FERROUS SULFATE (325 MG) 325 MG/TAB TABLET PO SCH ×2 (08:26→16:54)
[2022-06-29] MEDS: VANCOMYCIN 1 GM in IV D5W 250ml IV SCH (15:28)
[2022-06-29 16:56] LABS: EOSINOPHILS % (MANUAL) 1 % (0-4); LYMPHOCYTES % (MANUAL) 16 % (16-48); MONOCYTES % (MANUAL) 18 % (0-11.0); NEUTROPHILS % (MANUAL) 65 (42-76)
[2022-06-29 16:57] VITALS: BP 151/80
[2022-06-29] MEDS: ATORVASTATIN 40 MG TABLET PO SCH (18:39)
--- NOTE | 2022-06-29 19:05 | NUR ---
RN NOTES: RECEIVED AWAKE ON BED, AND FRIEND VISITING HIM, ON O2 INHALATION BUT HE WAS REMOVING IT DURING ENDORSEMENT, REMINDED TO PUT ON, HE VERBALIZED "LATER", A/0X4, ORIENTED TO UNIT AND STAFF, ABLE TO GO TO BATHROOM WITH ASSIST, SKIN IS INTACT, IV CANNULA ON THE LEFT HAND G#22 WITH IVF OF NS AT 75 ML/HR, FOR VANCO TROUGH TOMORROW AT 1400, URINE C/S RESULT TO BE F/U, F/U WITH I.D., ASPIRATION PRECAUTION OBSERVED.
--- NOTE | 2022-06-29 19:15 | NUR ---
MED/SURG ([facility]) CLOSING NOTE (DAYSHIFT) [facility] A/O X 4. ABLE TO MAKE NEEDS KNOWN. ON RA WITH NO SIGNS OF SOB OR DISTRESS. IV ACCESS ON LEFT HAND G22, PATENT AND INTACT. ALL SAFETY MEASURES IMPLEMENTED, BED IN LOW AND LOCKED POSITION, SIDE RAILS UP X 2, CALL LIGHT WITHIN REACH. WILL ENDORSE TO ONCOMING SHIFT RN FOR SONAM.
[2022-06-29 20:00] VITALS: BP 158/75
--- NOTE | 2022-06-29 22:00 | NUR ---
RN NOTES: IVF CONSUMED, UNABLE TO SCAN IV BAG, MANUALLY ENTERED BAR CODE, IVF NS AT 75 ML/HR STARTED.
[2022-06-29] MEDS: LEVOFLOXACIN (250MG) 250 MG TABLET PO SCH (22:11)
--- NOTE | 2022-06-29 22:41 | NUR ---
RN NOTES: LEFT, ENCOURAGE TO PUT BACK HIS O2 INHALATION, HE IS REMOVING IT IN BETWEEN SPO2-92%, O2 INHALATION AT 2L/MIN VIA NC RE-STARTED.KEPT ON CLOSE WATCH, CALL LIGHT WITHIN EASY REACH, INSTRUCT TO CALL FOR ASSISTANCE.
[2022-06-30] VITALS: BP 126/72
--- NOTE | 2022-06-30 01:26 | NUR ---
RN NOTES: CALLED AT AROUND 0050, NOTIFIED WENT TO THE BATHROOM, COMPUTERIZED MILL MILL RECORDER ASSISTED, HE IS FEELING COLD, GIVEN WARM BLANKET, NO CHILLS OR FEVER AT THIS TIME.MONITORED.
[2022-06-30 02:00] VITALS: BP 164/82
[2022-06-30] MEDS: VANCOMYCIN 1 GM in IV D5W 250ml IV SCH ×2 (02:01→15:42)
--- NOTE | 2022-06-30 02:04 | NUR ---
RN NOTES: FEELING COLD AGAIN WITH MILD BODYACHE, V/S CHECKED T-99.8 MS-101 RR-23 SPO2-100% BP-164/82, PRN MEDS GIVEN.NON PHARMACOLOGIC INTERVENTION RENDERED, WARM BLANKET PROVIDED.
[2022-06-30 04:00] VITALS: BP 138/58
--- NOTE | 2022-06-30 04:38 | NUR ---
RN NOTES: CALLED UPDATED, HE JUST PEE AND 2 RN ASSISTED HIM TO THE BATHROOM, HE IS AFEBRILE NOW T-98.3 BP-138/58,ABLE TO SLEEP AND REST, WAS WORRY ABOUT HER , WHEN ASKED IF HE HAS ANY PROBLEM, HE SAID "IM OK".KEPT ON SEMI FOWLERS POSITION, KEPT CALL LIGHT WITHIN EASY REACH.
[2022-06-30 05:46] LABS: BASOPHILS # (AUTO) 0.1 K/uL (0.0-0.2); BASOPHILS % (AUTO) 0.7 % (0.0-2.0); EOSINOPHILS % (AUTO) 1.3 % (0.0-6.0); HEMATOCRIT 25 % (39-51); HEMOGLOBIN 7.6 g/dL (13.5-17.5); LYMPHOCYTES % (AUTO) 9.3 % (20.0-44.0); MEAN CORPUSCULAR HGB CONC 30 g/dl (31.0-36.0); MEAN CORPUSCULAR VOLUME 68 fL (80-96); MONOCYTES # (AUTO) 1.1 K/uL (0.1-1.30); MONOCYTES % (AUTO) 10.4 % (2.0-12.0); NEUTROPHILS # (AUTO) 8.6 K/uL (1.8-8.9); NEUTROPHILS % (AUTO) 78.3 % (43.0-81.0); PLATELET COUNT (AUTO) 271 K/uL (150-450)
[2022-06-30 05:55] LABS: CALCIUM, SERUM 8.6 mg/dL (8.5-10.1); CREATININE 1.3 mg/dL (0.6-1.3); POTASSIUM 3.9 mmol/L (3.5-5.1)
--- NOTE | 2022-06-30 06:30 | NUR ---
RN NOTES: ASLEEP, TOILETTED 3X ENTIRE SHIFT, LATEST WEIGHT 256, IVF OF NS AT 75 ML/HR ONGOING, WITH O2 AT 2L/MIN VIA NC SPO2-97%, AFEBRILE, FOR LABS IN THE MORNING, TO F/U BLOOD AND URINE C/S RESULT, TO BE SEEN BY HAILY Graham AT 1400, ASPIRATION PRECAUTION OBSERVED. ENDORSED FOR CONTINUITY OF CARE.
[2022-06-30] MEDS: PANTOPRAZOLE 40 MG TABLET.DR PO SCH ×2 (07:57→15:42)
[2022-06-30 08:00] VITALS: BP 139/59
[2022-06-30] MEDS: ASPIRIN 81 MG TAB.CHEW PO SCH (09:47)
[2022-06-30] MEDS: FERROUS SULFATE (325 MG) 325 MG/TAB TABLET PO SCH ×2 (09:47→18:08)
[2022-06-30] MEDS: CLOPIDOGREL BISULFATE 75 MG TABLET PO SCH (09:47)
[2022-06-30] MEDS: hydrALAZINE HCL 25 MG TABLET PO SCH ×3 (09:48→18:07)
[2022-06-30] MEDS: IV NS 0.9% 1,000 ML IV PRN (14:37)
[2022-06-30 16:00] VITALS: BP 131/59
[2022-06-30] MEDS: ATORVASTATIN 40 MG TABLET PO SCH (18:07)
--- NOTE | 2022-06-30 19:12 | NUR ---
RN CLOSING NOTE PATIENT IN BED WITH FAMILY AT BEDSIDE. A/O X 4. ABLE TO MAKE NEEDS KNOWN. BREATHING ON 1L ON NASAL CANNULA, WITH NO SIGNS OF SOB OR DISTRESS. IV ACCESS ON LEFT HAND G22, PATENT AND INTACT RUNNING NS AT 75MLS/HR. ALL SAFETY MEASURES IMPLEMENTED, BED IN LOW AND LOCKED POSITION, SIDE RAILS UP X 2, CALL LIGHT WITHIN REACH. WILL ENDORSE TO ONCOMING SHIFT RN FOR SONAM.
--- NOTE | 2022-06-30 20:53 | NUR ---
RN OPENING NOTES PT WAS SITTING ON BED WITH ON THE BEDSIDE. A/O X 4, ABLE TO MAKE NEEDS KNOWN. PT ON O2 INHALATION VIA NASAL CANNULA @2LPM, O2 SAT IS 98%, TOLERATING WELL, BREATHING EVEN AND UNLABORED @THIS TIME. PT IV ACCESS IS PRESENT ON THE LEFT HAND #22G, PATENT, INTACT AND FLUSHES WELL W/ NO S & SX OF INFILTRATION @ SITE NOTED. SAFETY MEASURES IS IN PLACE. BED AT ITS LOWEST AND LOCKED POSITION. SIDE RAILS UP X 2.BEDSIDE TABLE AND CALL LIGHT IS EASY REACH. BED ALARM IS ON. WILL CONTINUE TO MONITOR PT ACCORDINGLY. Addendum: 06/30/22 at 2053 by SUNITA CALHOUN RN OPENING NOTES @1899
--- NOTE | 2022-06-30 22:19 | NUR ---
[facility] THE LAB CALLED, LAB RECEIVED THE URINE SAMPLE OF PT BUT NO UA ORDER.
--- NOTE | 2022-06-30 22:23 | NUR ---
ORDERED UA FOR PT DONE.
[2022-06-30] MEDS: LEVOFLOXACIN (250MG) 250 MG TABLET PO SCH (22:27)
[2022-06-30 23:01] LABS: BILIRUBIN,URINE NEGATIVE (NEGATIVE); COLOR,URINE YELLOW (YELLOW); LEUKOCYTE ESTERASE ,URINE NEGATIVE (NEGATIVE); NITRITE, URINE NEGATIVE (NEGATIVE); PH,URINE 5.5 (5.0-8.0); PROTEIN,URINE NEGATIVE (NEGATIVE); UGLUCOSE NEGATIVE (NEGATIVE); UROBILINOGEN,URINE 0.2 EU/dL (0.2)
[2022-07-01] VITALS: BP 152/99
[2022-07-01] MEDS: VANCOMYCIN 1 GM in IV D5W 250ml IV SCH (02:24)
[2022-07-01 06:31] LABS: BASOPHILS % (AUTO) 0.7 % (0.0-2.0); EOSINOPHILS % (AUTO) 5.9 % (0.0-6.0); HEMATOCRIT 29 % (39-51); HEMOGLOBIN 8.6 g/dL (13.5-17.5); LYMPHOCYTES # (AUTO) 1.6 K/uL (0.8-4.8); MEAN CORPUSCULAR HGB CONC 30 g/dl (31.0-36.0); MEAN CORPUSCULAR VOLUME 69 fL (80-96); MONOCYTES # (AUTO) 0.9 K/uL (0.1-1.30); MONOCYTES % (AUTO) 14.3 % (2.0-12.0); NEUTROPHILS # (AUTO) 3.6 K/uL (1.8-8.9); NEUTROPHILS % (AUTO) 55.1 % (43.0-81.0); PLATELET COUNT (AUTO) 282 K/uL (150-450); RED BLOOD CELL COUNT(AUTO) 4.16 MIL/uL (4.5-6.0); WHITE BLOOD COUNT (AUTO) 6.6 K/uL (4.3-11.0)
[2022-07-01 06:37] LABS: CALCIUM, SERUM 8.7 mg/dL (8.5-10.1); CREATININE 1.3 mg/dL (0.6-1.3); POTASSIUM 3.9 mmol/L (3.5-5.1)
--- NOTE | 2022-07-01 06:56 | NUR ---
RN CLOSING NOTES PT IS AWAKE & RESTING COMFORTABLY IN BED. A/O X 4. RESPONSIVE AND FOLLOWS VERBAL COMMAND. PT IS ON O2 INHALATION VIA NASAL CANNULA @ 1LPM,O2 SAT 97%. NO S/SX OF RESPIRATORY DISTRESS NOTED. IV SITE ON LEFT HAND #22G, RUNNING NS @75MLS/HR, PATENT, INTACT AND FLUSHES WELL WITH NO S& SX OF INFILTRATION @ SITE NOTED. PT IS KEPT CLEAN, DRY AND COMFORTABLE. ADMINISTERED ALL MEDICATIONS ACCORDINGLY PER MD'S ORDER. SAFETY MEASURES IS IN PLACE. BED IS AT ITS LOWEST AND LOCKED POSITION. SIDE RAILS UP X 2. BEDSIDE TABLE AND CALL LIGHT IS EASY REACH. BED ALARM IS ON. WILL ENDORSE TO THE NEXT SHIFT FOR CONTINUITY OF CARE.
[2022-07-01 08:00] VITALS: BP 110/61
[2022-07-01 08:10] VITALS: BP 110/66
[2022-07-01] MEDS: hydrALAZINE HCL 25 MG TABLET PO SCH (08:10)
[2022-07-01] MEDS: FERROUS SULFATE (325 MG) 325 MG/TAB TABLET PO SCH (08:10)
[2022-07-01] MEDS: CLOPIDOGREL BISULFATE 75 MG TABLET PO SCH (08:10)
[2022-07-01] MEDS: PANTOPRAZOLE 40 MG TABLET.DR PO SCH (08:10)
[2022-07-01] MEDS: ASPIRIN 81 MG TAB.CHEW PO SCH (08:10)
--- NOTE | 2022-07-01 08:35 | NUR ---
RN NOTE NOTIFIED DR SANDOVAL AND DEXTER [employer] AND NURSING [employer]ER THAT PATIENT WILL BE DISCHARGED TODAY, MIDLINE ORDER CANCELLED. CHARGE NURSE AWARE.
[2022-07-01] MEDS ORDERED: LEVO500T90 PO (10:21)
--- NOTE | 2022-07-01 11:32 | NUR ---
RN NOTE PATIENT DISCHARGED HOME, IN STABLE CONDITION, PICKED UP BY VERONA RODRIGUEZ [phone]. PATIENT SIGNED DISCHARGE PACKET AND VERBALLY ACKNOWLEDGED PATIENT INSTRUCTIONS AND MEDICATIONS. ID BAND REMOVED. PATIENT BELONGINGS ACCOUNTED FOR AND SIGNED. YESY KINGSLEY TRANSPORTED PATIENT VIA WHEELCHAIR. CHARGE NURSE AWARE.
== END 2022-07-01 13:50 | disposition home health service (06) | DRG 720 ==
LOC: ER 19:55 → TELE1 22:53 → MEDSG1 06-27 15:48
PROVIDERS: ADMIT Internal Medicine; ATTEND Internal Medicine
DX: A41.9 Sepsis, unspecified organism (principal); N17.0 Acute kidney failure with tubular necrosis; D61.818 Other pancytopenia; I69.351 Hemiplegia and hemiparesis following cerebral infarction affecting right dominant side; K22.2 Esophageal obstruction; E88.09 Other disorders of plasma-protein metabolism, not elsewhere classified; D50.9 Iron deficiency anemia, unspecified; F15.90 Other stimulant use, unspecified, uncomplicated; I10 Essential (primary) hypertension; Z20.822 Contact with and (suspected) exposure to COVID-19; I69.322 Dysarthria following cerebral infarction; I69.320 Aphasia following cerebral infarction; E78.5 Hyperlipidemia, unspecified; I25.2 Old myocardial infarction; Z95.5 Presence of coronary angioplasty implant and graft; Z88.0 Allergy status to penicillin; Z91.018 Allergy to other foods; Z79.82 Long term (current) use of aspirin; Z79.02 Long term (current) use of antithrombotics/antiplatelets; Z79.899 Other long term (current) drug therapy; K44.9 Diaphragmatic hernia without obstruction or gangrene; K63.5 Polyp of colon; K64.8 Other hemorrhoids; E66.9 Obesity, unspecified; Z68.38 Body mass index [BMI] 38.0-38.9, adult; F32.A Depression, unspecified; G47.33 Obstructive sleep apnea (adult) (pediatric); I25.10 Atherosclerotic heart disease of native coronary artery without angina pectoris; D72.821 Monocytosis (symptomatic); E86.1 Hypovolemia; E87.6 Hypokalemia; I70.0 Atherosclerosis of aorta
CPT/HCPCS: 36415; 71045-TC; 76770-TC; 80048-TC; 80076-TC; 80202-TC; 82570-TC; 82728-TC; 83540-TC; 83605-TC; 83735-TC; 84100-TC; 84300-TC; 84484-TC; 85025-TC; 85396; 85730-TC; 87040-TC; 87081-TC; 87086-TC; 93307-TC; 97112-TC; 97116-TC; 97530-TC; A4216; A4223; C9803; G0378; G0480; J1956; J2405; J3370; J7030; J7060